=== PATIENT | female | born 1995 | race Hispanic/Latino ===

== ENCOUNTER 2018-12-21 22:01 | Emergency (ER) | payer OTHER ==
[~2018-12-21] VITALS: Ht 177.8 cm; Wt 97.5 kg
[2018-12-21] MEDS ORDERED: ACETAMIN/BUTALBITAL/CAFFEINE TAB PO ONE (22:30)
[2018-12-21] MEDS ORDERED: METOCLOPRAMIDE HCL 10 MG TAB PO ONE (22:30)
[2018-12-21] MEDS ORDERED: DIPHENHYDRAMINE HCL 25 MG CAP PO ONE (22:30)
[2018-12-21] MEDS ORDERED: FIORINAL 50-321 EACH PO (22:59)
--- NOTE | 2018-12-21 23:06 | Diagnostic Imaging Report ---
CT BRAIN WO HISTORY: Headache, trauma COMPARISON: None. TECHNIQUE: Noncontrast axial scans were obtained from skull base to the vertex. Coronal and sagittal reconstructions obtained from the axial data. One or more of the following dose reduction techniques were used: Automated exposure control, adjustment of the mA and/or kV according to patient size, and/or utilization of iterative reconstruction technique. DISCUSSION: Scalp/Skull: Unremarkable. Brain sulci: Appropriate for patient's age. Ventricles: Normal in size and configuration. No hydrocephalus. Extra-axial spaces: No masses or fluid collections. Parenchyma: No abnormal densities. No mass, hemorrhage, or large vascular territory acute infarct. Dural sinuses: No abnormal densities. Sellar/Suprasellar region: Intact. Skull base: Intact. Incidental findings: None. IMPRESSION: No intracranial abnormalities. Signed by: Dr. Costa Saldivar M.D. on 12/21/2018 11:02 PM
[2018-12-21 23:22] VITALS: BP 122/74
== END 2018-12-21 23:32 | disposition home or self-care (01) ==
LOC: ER 22:01
DX: S06.0X0A Concussion without loss of consciousness, initial encounter (principal); S00.83XA Contusion of other part of head, initial encounter; R51 Headache; W22.09XA Striking against other stationary object, initial encounter; Y92.89 Other specified places as the place of occurrence of the external cause
CPT/HCPCS: 70450; 99283; J8597